=== PATIENT | female | born 1980 | race Caucasian/White ===

== ENCOUNTER 2019-05-17 10:45 | Outpatient (CLI) | payer OTHER ==
[2019-05-17] MEDS ORDERED: IOVERSOL 320 50 ML VIAL ONE (10:53)
[2019-05-17] MEDS ORDERED: IOVERSOL 320 100 ML VIAL IVP ONE (10:53)
[2019-05-17] MEDS: IOVERSOL 320 50 ML VIAL PO ONE (15:52)
[2019-05-17] MEDS: IOVERSOL 320 100 ML VIAL IVP ONE (15:52)
--- NOTE | 2019-05-18 16:56 | CT Report ---
Reason: LLQ PAIN Procedure Date: 05/17/2019 Accession Number: [id number] / [id number] Procedure: CT - Abdomen/Pelvis W CPT Code: Final Report FULL RESULT: EXAM: CT ABDOMEN AND PELVIS EXAM DATE: 05/17/2019 12:31 PM. CLINICAL HISTORY: LLQ PAIN. COMPARISONS: None. TECHNIQUE: Routine helical CT imaging was performed through the abdomen and pelvis. IV contrast: OPTI 320 100ML. Enteric contrast: No. Reconstructions: Coronal and sagittal. In accordance with CT protocol optimization, one or more of the following dose reduction techniques were utilized for this exam: automated exposure control, adjustment of mA and/or KV based on patient size, or use of iterative reconstructive technique. FINDINGS: Lung Bases: Unremarkable. Liver: Normal. No masses. Gallbladder/Bile Ducts: Unremarkable. Spleen: Normal. Pancreas: Normal. Adrenal Glands: Normal. Kidneys: Normal. No masses or hydronephrosis. Peritoneal Cavity/Bowel: Normal. No free fluid, free air or adenopathy. No masses or acute inflammatory process. The appendix is well visualized and normal. Pelvic Organs: A well-defined hypodense fluid containing lesion is seen in right adnexa measuring 4.6 x 3.2 cm. Findings most consistent with a physiological cyst of right ovary. Vasculature: No aneurysms or other significant abnormality. Bones: No significant abnormality. Other: None. IMPRESSION: No acute abdominal pathology. A 4.6 x 3.2 cm fluid containing hypodense lesion in right adnexa is consistent with physiological ovarian cyst in this age group. RADIA
== END 2019-05-17 10:46 | disposition home or self-care (01) ==
LOC: DI 10:45
PROVIDERS: ATTEND Nurse Practitioner Family
DX: N94.9 Unspecified condition associated with female genital organs and menstrual cycle (principal); R10.32 Left lower quadrant pain
CPT/HCPCS: 74177; Q9967

== ENCOUNTER 2019-08-26 09:04 | Outpatient (CLI) | payer OTHER ==
--- NOTE | 2019-08-26 11:08 | Ultrasound Report ---
Reason: HISTORY OF OVARIAN CYST Procedure Date: 08/26/2019 Accession Number: [id number] / [id number] Procedure: US - Pelvic w/Transvaginal CPT Code: Final Report FULL RESULT: EXAM: PELVIC ULTRASOUND EXAM DATE: 08/26/2019 09:40 AM. CLINICAL HISTORY: History of ovarian cyst. Remote hysterectomy for endometriosis 2011. COMPARISON: CT abdomen and pelvis 05/17/2019. TECHNIQUE: Realtime transabdominal pelvic scan for global evaluation, followed by transvaginal scan for further detail, with image documentation. FINDINGS: Uterus: Surgically absent. Right Ovary: 3.8 x 1.7 x 3.8 cm, volume 12.8 cc. Unremarkable. Previous cyst has resolved. Left Ovary: 3.2 x 1.9 x 3.1 cm, volume 9.9 cc. Unremarkable. No cyst by size criteria. Free Fluid: None. Other: No adnexal mass evident. IMPRESSION: 1. Resolution of right ovarian cyst. Bilateral ovaries appear unremarkable. 2. Hysterectomy. 3. No free fluid or adnexal lesion. RADIA
== END 2019-08-26 09:05 | disposition home or self-care (01) ==
LOC: DI 09:04
PROVIDERS: ATTEND Obstetrics & Gynecology
DX: Z87.42 Personal history of other diseases of the female genital tract (principal); Z90.710 Acquired absence of both cervix and uterus
CPT/HCPCS: 76830; 76856

== ENCOUNTER 2021-07-01 08:00 | Outpatient (CLI) | payer MEDICAID, OTHER ==
[2021-07-01 15:34] LABS: BASOPHILS # (AUTO) 0.1 10^3/uL (0.0-0.1); BASOPHILS % (AUTO) 1.1 %; EOSINOPHILS # (AUTO) 0.5 10^3/uL (0.0-0.7); EOSINOPHILS % (AUTO) 3.9 %; HCT - HEMATOCRIT 45.1 % (37.0-47.0); HGB - HEMOGLOBIN 15.9 g/dL (12.0-16.0); LYMPHOCYTES # (AUTO) 2.9 10^3/uL (1.5-3.5); LYMPHOCYTES % (AUTO) 23.7 %; MEAN CORPUSCULAR HEMOGLOBIN 32.4 pg (27.0-31.0); MEAN CORPUSCULAR HGB CONC 35.3 g/dL (32.0-36.0); MEAN CORPUSCULAR VOLUME 91.9 fL (81.0-99.0); MEAN PLATELET VOLUME 10.6 fL (7.9-10.8); MONOCYTES # (AUTO) 0.5 10^3/uL (0.0-1.0); MONOCYTES % (AUTO) 4.3 %; NEUTROPHILS # (AUTO) 8.1 10^3/uL (1.5-6.6); NEUTROPHILS % (AUTO) 66.4 %; PLT - PLATELET COUNT 324 10^3/uL (130-450); RED BLOOD COUNT 4.91 10^6/uL (4.20-5.40); RED CELL DISTRIBUTION WIDTH 12.1 % (12.0-15.0); WHITE BLOOD COUNT 12.2 x10^3/uL (4.8-10.8)
[2021-07-01 16:18] LABS: ALBUMIN 4.6 g/dL (3.2-5.5); ALBUMIN/GLOBULIN RATIO 1.4 (1.0-2.2); ALKALINE PHOSPHATASE 48 IU/L (42-121); ALT ALANINE AMINOTRANSFERASE 40 IU/L (10-60); AST ASPARTATE AMINOTRANSFERASE 39 IU/L (10-42); BILIRUBIN,TOTAL 0.6 mg/dL (0.2-1.0); BUN - BLOOD UREA NITROGEN 11 mg/dL (6-20); CALCIUM 9.7 mg/dL (8.5-10.3); CARBON DIOXIDE - CO2 26 mmol/L (21-32); CHLORIDE 97 mmol/L (101-111); CHOL/HDL RATIO 4.5 (<4.4); CHOLESTEROL 257 mg/dL; CREATININE 0.6 mg/dL (0.4-1.0); GFR - MDRD 111 (>89); GLUCOSE 129 mg/dL (70-100); HDL CHOLESTEROL 57 mg/dL; LDL CHOLESTEROL,CALCULATED 167 mg/dL; LDL/HDL RATIO 2.9 (<4.4); POTASSIUM 3.9 mmol/L (3.5-5.0); SODIUM 136 mmol/L (135-145); TRIGLYCERIDES 167 mg/dL; VLDL CHOLESTEROL 33 mg/dL
[2021-07-01 16:23] LABS: THYROID STIMULATING HORMONE 4.13 uIU/mL (0.34-5.60)
[2021-07-01 16:46] LABS: CREATININE,URINE 320.9 mg/dL; MICROALBUM/CREATININE RATIO,UR 16.5 ug/mg (<30.0); MICROALBUMIN,URINE 5.3 mg/dL (0-300.0)
[2021-07-01 19:57] LABS: ESTIMATED AVERAGE GLUCOSE 123 mg/dL (70-100); HEMOGLOBIN A1c% 5.9 % (4.27-6.07)
== END 2021-07-01 23:59 | disposition home or self-care (01) ==
LOC: LAB.S 08:00
PROVIDERS: ATTEND Registered Nurse
DX: F41.9 Anxiety disorder, unspecified (principal); I10 Essential (primary) hypertension; R73.01 Impaired fasting glucose; F32.A Depression, unspecified
CPT/HCPCS: 36415; 80053; 80061; 82043; 82306; 82570; 83036; 83721; 84443; 85025

== ENCOUNTER 2021-07-27 09:54 | Emergency (ER) | payer MEDICAID ==
[2021-07-27 10:22] LABS: BASOPHILS # (AUTO) 0.1 10^3/uL (0.0-0.1); BASOPHILS % (AUTO) 0.8 %; EOSINOPHILS # (AUTO) 0.1 10^3/uL (0.0-0.7); EOSINOPHILS % (AUTO) 1.1 %; HCT - HEMATOCRIT 42.9 % (37.0-47.0); HGB - HEMOGLOBIN 14.8 g/dL (12.0-16.0); LYMPHOCYTES # (AUTO) 2.5 10^3/uL (1.5-3.5); LYMPHOCYTES % (AUTO) 22.2 %; MEAN CORPUSCULAR HEMOGLOBIN 31.9 pg (27.0-31.0); MEAN CORPUSCULAR HGB CONC 34.5 g/dL (32.0-36.0); MEAN CORPUSCULAR VOLUME 92.5 fL (81.0-99.0); MEAN PLATELET VOLUME 9.7 fL (7.9-10.8); MONOCYTES # (AUTO) 0.6 10^3/uL (0.0-1.0); MONOCYTES % (AUTO) 5.3 %; NEUTROPHILS # (AUTO) 7.8 10^3/uL (1.5-6.6); NEUTROPHILS % (AUTO) 70.2 %; PLT - PLATELET COUNT 248 10^3/uL (130-450); RED BLOOD COUNT 4.64 10^6/uL (4.20-5.40); RED CELL DISTRIBUTION WIDTH 12.2 % (12.0-15.0); WHITE BLOOD COUNT 11.1 x10^3/uL (4.8-10.8)
[2021-07-27 10:36] LABS: ALBUMIN 4.7 g/dL (3.2-5.5); ALBUMIN/GLOBULIN RATIO 1.4 (1.0-2.2); BILIRUBIN,TOTAL 0.8 mg/dL (0.2-1.0); CALCIUM 9.2 mg/dL (8.5-10.3); CREATININE 0.5 mg/dL (0.4-1.0)
--- NOTE | 2021-07-27 10:59 | ED Physician Documentation ---
PD HPI ABD PAIN - Stated complaint Stated Complaint: ABD PX - Chief complaint Chief Complaint: Abd Pain - History obtained from History obtained from: Patient - History of Present Illness Timing - onset: Yesterday Timing - duration: Days (06/06) Timing - details: Abrupt onset, Waxing and waning Quality: Sharp, Pain Location: RLQ, Suprapubic Radiation: Lower back. No: Right flank Improved by: Laying still. No: Eating Worsened by: Moving. No: Eating, Breathing, Palpation Associated symptoms: Nausea. No: Fever, Vomiting, Diarrhea, Constipation, Dysuria, Vaginal bleeding Similar symptoms before: Has not had sx before Recently seen: Not recently seen Review of Systems Constitutional: denies: Fever, Chills Nose: denies: Rhinorrhea / runny nose, Congestion Throat: denies: Sore throat Respiratory: denies: Cough GI: reports: Abdominal Pain, Nausea. 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) : None - Past Surgical History /FOOD AND BEVERAGE SERVER: Hysterectomy - Present Medications Home Medications: Ambulatory Orders Medication Instructions Recorded Confirmed Docusate Sodium 100Mg Capsule 100 mg PO DAILY #15 cap 07/27/21 [Colace 100Mg Capsule] HYDROcod/ACETAM 5/325 [Iselin 5/325] 1 ea PO Q6H PRN #12 tablet 07/27/21 Naproxen 250 mg PO TID 7 Days #20 tablet 07/27/21 - Allergies Allergies/Adverse Reactions: Allergies Allergy/AdvReac Type Severity Reaction Status Date / Time No Known Drug Allergies Allergy Verified 07/27/21 10:08 PD ED PE NORMAL - Vitals Vital signs reviewed: Yes - General General: Alert and oriented X 3, No acute distress (seems in pain and also anxious), Well developed/nourished - Neck Neck: Supple, no meningeal sign, No adenopathy - Cardiac Cardiac: RRR, No murmur - Respiratory Respiratory: Clear bilaterally - Abdomen Abdomen: Normal bowel sounds, Soft, Non distended, No organomegaly, Other (tender RLQ and suprpubic area on right with some local guarding. NO percussion tenderness. ) - Female Female : Deferred - Rectal Rectal: Deferred - Back Back: No CVA TTP - Derm Derm: Normal color, Warm and dry, No rash - Neuro Neuro: Alert and oriented X 3, No motor deficit, Normal speech Results - Vitals Vitals: Vital Signs - 24 hr 07/27/21 07/27/21 14:08 15:42 Temperature 36.7 C 36.6 C Heart Rate 85 86 Respiratory 18 16 Rate Blood Pressure 170/102 H 158/98 H O2 Saturation 98 97 Oxygen O2 Source Room air - Labs Labs: Laboratory Tests 07/27/21 07/27/21 07/27/21 10:19 10:19 10:53 WBC 11.1 H RBC 4.64 Hgb 14.8 Hct 42.9 MCV 92.5 MCH 31.9 H MCHC 34.5 RDW 12.2 Plt Count 248 MPV 9.7 Neut # (Auto) 7.8 H Lymph # (Auto) 2.5 [place] # (Auto) 0.6 Eos # (Auto) 0.1 Baso # (Auto) 0.1 Absolute Nucleated RBC 0.00 Nucleated RBC % 0.0 Sodium 131 L Potassium 4.0 Chloride 95 L Carbon Dioxide 24 Anion Gap 12.0 BUN 12 Creatinine 0.5 Estimated GFR (MDRD) 137 Glucose 123 H Calcium 9.2 Total Bilirubin 0.8 AST 48 H ALT 48 Alkaline Phosphatase 45 Total Protein 8.0 Albumin 4.7 Globulin 3.3 Albumin/Globulin Ratio 1.4 Lipase 34 Urine Color YELLOW Urine Clarity CLEAR Urine pH 7.0 Ur Specific Rankin 1.025 Urine Protein NEGATIVE Urine Glucose (UA) NEGATIVE Urine Ketones 15 H Urine Occult Blood NEGATIVE Urine Nitrite NEGATIVE Urine Bilirubin NEGATIVE Urine Urobilinogen 0.2 (NORMAL) Ur Leukocyte Esterase NEGATIVE Ur Microscopic Review NOT INDICATED Urine Culture Comments NOT INDICATED Urine HCG, Qual NEGATIVE - Rads (name of study) pelvic U/S Radiology: Prelim report reviewed (ovaries normal bilaterally. No pelvic free fluid. ), See rad report abd U/S Radiology: Prelim report reviewed (gallbladder normal), See rad report abd/pelvic CT Radiology: Prelim report reviewed (no acute process to explain pain. ), See rad report PD MEDICAL DECISION MAKING - ED course Complexity details: reviewed results, considered differential (pain sounding pelvic area so started with U/S, which showed normal ovaries. SO consider stone, appy, etc and got CT, which is also negative. UNclear cause of pain, but not significant cause at this time. Can treat and watch progression. ), d/w patient Departure - Departure Disposition: 01 Home, Self Care Clinical Impression: Right lower quadrant abdominal pain Condition: Stable Record reviewed to determine appropriate education?: Yes Instructions: ED Abdominal Pain Female Non-Specific Abdominal Pain Follow-Up: Alisa Gutierres ARNP [Primary Care Provider] - Prescriptions: Docusate Sodium 100Mg Capsule [Colace 100Mg Capsule] 100 mg PO DAILY #15 cap Naproxen 250 mg PO TID 7 Days #20 tablet HYDROcod/ACETAM 5/325 [Iselin 5/325] 1 ea PO Q6H PRN #12 tablet PRN Reason: Pain Comments: Your urine test, blood test, pelvic ultrasound and CT of the abdomen pelvis are normal without any acute findings to account for your pain. Considerations therefore would be things that would not show on these tests such as some stretching or tearing of adhesions (scar tissue), muscular type pains, ureteral colic or spasm such as small gravel or a tiny stone that passed and so therefore was not still present on scan, etc. There are common enough times of the presence of belly pain with normal testing. Typically in those cases cause of the pain is transient and gets better over a few days. I would suggest using anti-inflammatory such as naproxen 3 times daily with food for the next several days to week. Add Tylenol every 4-6 hours if needed for pain or hydrocodone if needed for worse pain. These would be intended short-term. Recheck if persistent symptoms beyond several days to week or if any new associated symptoms such as bloody stool, fevers, vomiting, skin rash, other concerns. I transmitted prescriptions to [email or web address] in [place]. I am prescribing a short course of narcotic pain medication for you. These are potentially dangerous and addictive medications that should be used carefully. These medications may constipate you. Take an hyuz-wpu-[id number] stool softener such as docusate twice daily with plenty of water while taking these medications. If you go 24 hours without a bowel movement, take wrpb-vdr-[id number] MiraLAX, per package instructions. Do not drink or drive while taking these medications. If you received narcotic or sedating medications while in the emergency department do not drive for 24 hours. Store this medication in a safe, secure place and out of reach of children. It is a violation of federal law to give or sell this medication to another person or to use in a manner other than prescribed. The ED will not refill narcotic prescriptions, including prescriptions lost or stolen. You can dispose of unwanted medications at the [facility]'s office or at several pharmacies such as [facility]. Discharge Date/Time: 07/27/21 15:44
[2021-07-27 11:04] LABS: BILIRUBIN,URINE NEGATIVE (NEGATIVE); CLARITY,URINE CLEAR (CLEAR); GLUCOSE, URINE (UA) NEGATIVE (NEGATIVE); KETONES,URINE (UA) 15 mg/dL (NEGATIVE); LEUKOCYTE ESTERASE, URINE NEGATIVE (NEGATIVE); NITRITE,URINE NEGATIVE (NEGATIVE); OCCULT BLOOD,URINE NEGATIVE (NEGATIVE); PROTEIN,URINE NEGATIVE (NEGATIVE); UROBILINOGEN,URINE 0.2 (NORMAL) E.U./dL (NORMAL)
[2021-07-27 11:06] LABS: HCG UR QUAL NEGATIVE
[2021-07-27] MEDS ORDERED: KETOROLAC 30 MG/ML VIAL IVP STA (11:28)
[2021-07-27] MEDS ORDERED: ONDANSETRON 4 MG/2 ML VIAL IVP STA (11:28)
[2021-07-27] MEDS ORDERED: HYDROmorphone 1 MG/ML CARPUJECT IVP STA (11:28)
[2021-07-27] MEDS ORDERED: SODIUM CHLORIDE 0.9% 1,000 ML IV STA (11:32)
--- NOTE | 2021-07-27 12:53 | Ultrasound Report ---
PROCEDURE: Abdomen Limited INDICATIONS: RLQ pain/tender TECHNIQUE: Real-time focused scanning was performed of the abdomen, with image documentation. COMPARISON: Reference is made to the CT abdomen dated May 17, 2019. FINDINGS: AORTA: The visualized abdominal aorta is normal. IVC: The visualized IVC is normal. LIVER: Normal contour. Increased echogenicity, compatible hepatic steatosis. The portal vein is pat ent. Measures 17.4 cm in length. PANCREAS: The visualized portions of the pancreas are normal. Gallbladder and biliary tree: No gallbladder wall thickening, pericholecystic fluid, or shadowing g allstones. The common bile duct measures 4.4 mm. RIGHT KIDNEY: Normal in appearance with no hydronephrosis. Measuring 11 point cm in length. The pat al cortex thickness measures 1.45 cm. No ascites. IMPRESSION: 1.No acute right upper quadrant sonographic abnormality. Reviewed by: Saad Barbour MD on 07/27/2021 12:51 PM PST Approved by: Saad Barbour MD on 07/27/2021 12:51 PM PST Station ID: [id number]
--- NOTE | 2021-07-27 12:57 | Ultrasound Report ---
PROCEDURE: Pelvic w/Transvag+Doppler Comp INDICATIONS: pelvic pain, R TECHNIQUE: Real-time scanning was performed of the pelvic organs, with image documentation. Additional endovagi nal scanning was necessary due to incomplete visualization of the adnexal and endometrial structures by transabdominal scanning. COMPARISON: August 26, 2019. FINDINGS: UTERUS: Hysterectomy. RIGHT OVARY: 4.3 x 1.8 x 3.6 cm. Color-flow projects over the ovarian tissue. LEFT OVARY: 2.8 x 2.2 x 3.7 cm. Color-flow projects over the ovarian tissue. OTHER: None. IMPRESSION: 1.No significant abnormality. Reviewed by: Saad Barbour MD on 07/27/2021 12:55 PM PST Approved by: Saad Barbour MD on 07/27/2021 12:55 PM PST Station ID: [id number]
[2021-07-27] MEDS ORDERED: IOVERSOL 320 100 ML VIAL IVP ONE ×2 (13:41→16:18)
--- NOTE | 2021-07-27 14:25 | CT Report ---
PROCEDURE: Abdomen/Pelvis W INDICATIONS: right lower abd pain CONTRAST: 100 mL Optiray 320 TECHNIQUE: After the administration of intravenous contrast, 5 mm thick sections acquired from the diaphragms to the symphysis. 5 mm thick coronal and sagittal reformats were acquired. For radiation dose reducti on, the following was used: automated exposure control, adjustment of mA and/or kV according to angela ent size. COMPARISON: None. FINDINGS: Image quality: Excellent. ABDOMEN: Lung bases: Lung bases are clear. Heart size is normal. Solid organs: Hepatic hypoattenuation indicative of diffuse steatosis. No focal hepatic mass. Spleen is normal in size and appearance. Gallbladder normal. Biliary system is non dilated. Pancreas enhan michael normally. No adrenal nodules. Kidneys demonstrate normal size and enhancement, without hydronep hrosis. Peritoneum and bowel: Appendix is normal. Bowel loops demonstrate normal wall thickness and caliber. No free fluid or air. Nodes and vessels: No retroperitoneal or mesenteric adenopathy by size criteria. Aorta and inferior vena cava are normal in size. Miscellaneous: No ventral hernias. PELVIS: Genitourinary: Bladder wall thickness is normal. Miscellaneous: No inguinal hernias or adenopathy. Bones: No suspicious bony lesions. Bilateral L5 pars defects with grade 1 spondylolisthesis of L5 on S1 measuring 7 mm. IMPRESSION: No appendicitis or other acute finding. Reviewed by: Trell Crespo MD on 07/27/2021 2:24 PM PST Approved by: Trell Crespo MD on 07/27/2021 2:24 PM PST Station ID: [id number]
[2021-07-27 15:44] VITALS: BP 158/98
== END 2021-07-27 15:44 | disposition home or self-care (01) ==
LOC: ED 09:54
DX: R10.31 Right lower quadrant pain (principal)
CPT/HCPCS: 36415; 74177; 76705; 76830; 76856; 80053; 81003; 81025; 83690; 85025; 93975; 96374; 96375; 99282; 99284; Q9967; 81001; 87086

== ENCOUNTER 2022-04-21 08:30 | Outpatient (CLI) | payer OTHER ==
--- NOTE | 2022-04-21 10:58 | MRI Report ---
PROCEDURE: BRAIN WO INDICATIONS: Cluster headache TECHNIQUE: Noncontrast axial T1 spin echo, axial T2 fast spin echo, sagittal and axial FLAIR, coronal T2 fast sp in echo, axial gradient echo, axial diffusion and ADC through the brain. COMPARISON: None. FINDINGS: Image quality: Excellent. CSF Spaces: Basal cisterns are patent. No extra-axial fluid collections. Ventricles are normal in size and shape. Brain: No intracranial masses or hemorrhage. Rabago/white matter interface is normal. Brainstem appe ars normal. Diffusion-weighted images demonstrate no acute ischemic insult. No chronic ischemic ins ults. Normal intravascular flow voids are present. Skull and face: Calvarium has normal marrow signal. Orbits appear normal. Sinuses: Sinuses and mastoids are clear. IMPRESSION: Normal MRI of the brain. Reviewed by: Trell Crespo MD on 04/21/2022 10:56 AM [facility] Approved by: Trell Crespo MD on 04/21/2022 10:56 AM [facility] Station ID: [id number]
== END 2022-04-21 08:31 | disposition home or self-care (01) ==
LOC: DI 08:30
PROVIDERS: ATTEND Registered Nurse
DX: G44.009 Cluster headache syndrome, unspecified, not intractable (principal)

== ENCOUNTER 2022-05-28 09:55 | Emergency (ER) | payer OTHER ==
[2022-05-28 10:16] VITALS: BP 160/101
[2022-05-28 10:39] LABS: BASOPHILS # (AUTO) 0.1 10^3/uL (0.0-0.1); BASOPHILS % (AUTO) 0.6 %; EOSINOPHILS # (AUTO) 0.1 10^3/uL (0.0-0.7); EOSINOPHILS % (AUTO) 0.7 %; HGB - HEMOGLOBIN 15.6 g/dL (12.0-16.0); LYMPHOCYTES # (AUTO) 1.2 10^3/uL (1.5-3.5); LYMPHOCYTES % (AUTO) 12.9 %; MEAN CORPUSCULAR HEMOGLOBIN 32.4 pg (27.0-31.0); MEAN CORPUSCULAR HGB CONC 34.7 g/dL (32.0-36.0); MEAN CORPUSCULAR VOLUME 93.4 fL (81.0-99.0); MEAN PLATELET VOLUME 9.5 fL (7.9-10.8); MONOCYTES # (AUTO) 0.5 10^3/uL (0.0-1.0); MONOCYTES % (AUTO) 5.1 %; NEUTROPHILS # (AUTO) 7.3 10^3/uL (1.5-6.6); NEUTROPHILS % (AUTO) 80.4 %; PLT - PLATELET COUNT 183 10^3/uL (130-450); RED BLOOD COUNT 4.82 10^6/uL (4.20-5.40); RED CELL DISTRIBUTION WIDTH 12.6 % (12.0-15.0); WHITE BLOOD COUNT 9.1 x10^3/uL (4.8-10.8)
[2022-05-28 11:00] LABS: ALBUMIN 4.7 g/dL (3.2-5.5); ALBUMIN/GLOBULIN RATIO 1.4 (1.0-2.2); BILIRUBIN,TOTAL 1.9 mg/dL (0.2-1.0); CALCIUM 9.8 mg/dL (8.5-10.3); CREATININE 0.6 mg/dL (0.4-1.0); POTASSIUM 3.6 mmol/L (3.5-5.0)
--- OUTSIDE RECORDS SUMMARY | 2022-05-28 11:06 | EXTERNAL MEDICAL SUMMARY RPT | Continuity of Care Document ---
:1980 Author Organization [facility] Address [address] [place] [address] Phone Care Team Providers Name Role Phone Unavailable Unavailable Unavailable Alisa Davila Unavailable Unavailable Allergies No information. Encounters No information. Functional Status No information. Immunizations No information. Medications date description facility 2022-03-18 00:00 clonidine hcl All 2022-03-18 00:00 hydrochlorothiazide All 2022-03-18 00:00 buspirone All 2022-03-22 00:00 buspirone All 2022-04-06 00:00 buspirone All 2022-04-07 00:00 buspirone All 2022-04-06 00:00 sumatriptan All 2022-03-18 00:00 lisinopril All 2022-03-22 00:00 lisinopril All 2022-04-06 00:00 lisinopril All 2022-04-07 00:00 lisinopril All 2022-03-18 00:00 hydroxyzine hcl All 2022-03-22 00:00 hydroxyzine hcl All 2022-04-06 00:00 hydroxyzine hcl All 2022-04-07 00:00 hydroxyzine hcl All 2022-03-18 00:00 hydroxyzine hcl All 2022-03-22 00:00 hydroxyzine hcl All 2022-04-06 00:00 hydroxyzine hcl All 2022-04-07 00:00 hydroxyzine hcl All 2022-03-18 00:00 lisinopril All 2022-03-22 00:00 lisinopril All 2022-04-06 00:00 lisinopril All 2022-04-07 00:00 lisinopril All 2022-03-18 00:00 acyclovir All 2022-03-22 00:00 acyclovir All 2022-04-06 00:00 acyclovir All 2022-04-07 00:00 acyclovir All 2022-03-18 00:00 acyclovir All 2022-03-22 00:00 acyclovir All 2022-04-06 00:00 acyclovir All 2022-04-07 00:00 acyclovir All 2022-03-18 00:00 acyclovir All 2022-03-22 00:00 acyclovir All 2022-04-06 00:00 acyclovir All 2022-04-07 00:00 acyclovir All 2022-03-18 00:00 lisinopril All 2022-03-22 00:00 lisinopril All 2022-04-06 00:00 lisinopril All 2022-04-07 00:00 lisinopril All 2022-04-06 00:00 sumatriptan All 2022-03-18 00:00 lisinopril All 2022-03-22 00:00 lisinopril All 2022-04-06 00:00 lisinopril All 2022-04-07 00:00 lisinopril All 2022-03-18 00:00 clonidine hcl All 2022-03-18 00:00 hydrochlorothiazide All 2022-03-18 00:00 hydrochlorothiazide All 2022-03-18 00:00 clonidine hcl All 2022-04-06 00:00 sumatriptan All 2022-03-18 00:00 buspirone All 2022-03-22 00:00 buspirone All 2022-04-06 00:00 buspirone All 2022-04-07 00:00 buspirone All 2022-03-18 00:00 hydroxyzine hcl All 2022-03-22 00:00 hydroxyzine hcl All 2022-04-06 00:00 hydroxyzine hcl All 2022-04-07 00:00 hydroxyzine hcl All 2022-03-22 00:00 duloxetine All 2022-04-06 00:00 duloxetine All 2022-04-07 00:00 duloxetine All 2022-03-22 00:00 duloxetine All 2022-04-06 00:00 duloxetine All 2022-04-07 00:00 duloxetine All 2022-03-18 00:00 duloxetine All 2022-03-22 00:00 duloxetine All 2022-04-06 00:00 duloxetine All 2022-04-07 00:00 duloxetine All 2022-03-18 00:00 duloxetine All 2022-03-18 00:00 acyclovir All 2022-03-22 00:00 acyclovir All 2022-04-06 00:00 acyclovir All 2022-04-07 00:00 acyclovir All 2022-04-06 00:00 sumatriptan All 2022-03-18 00:00 duloxetine All 2022-03-18 00:00 buspirone All 2022-03-22 00:00 buspirone All 2022-04-06 00:00 buspirone All 2022-04-07 00:00 buspirone All 2022-03-18 00:00 buspirone All 2022-03-22 00:00 buspirone All 2022-04-06 00:00 buspirone All 2022-04-07 00:00 buspirone All 2022-03-18 00:00 clonidine hcl All 2022-03-22 00:00 duloxetine All 2022-04-06 00:00 duloxetine All 2022-04-07 00:00 duloxetine All 2022-03-18 00:00 duloxetine All 2022-03-18 00:00 hydroxyzine hcl All 2022-03-22 00:00 hydroxyzine hcl All 2022-04-06 00:00 hydroxyzine hcl All 2022-04-07 00:00 hydroxyzine hcl All 2022-03-18 00:00 hydrochlorothiazide All Problems date description facility 2022-04-05 00:00 Cluster headache All 2022-04-05 00:00 Cluster headache syndrome, unspecified All 2022-04-05 00:00 Cluster headache syndrome, unspecified, not All intractable Procedures date description facility 2022-04-05 00:00 Visit Code Hold All Results/Labs No information. Social History date description facility 2022-04-05 00:00 Never smoker All Vital Signs date measurement value units 2022-04-05 00:00 BMI 30.73 kg/m2 2022-04-05 00:00 BP_diastolic 90 mmHg 2022-04-05 00:00 BP_systolic 141 mmHg 2022-04-05 00:00 heart_rate 111 /min 2022-04-05 00:00 height_metric 157.48 cm 2022-04-05 00:00 height_standard 62 in 2022-04-05 00:00 respiration_rate 17 /min 2022-04-05 00:00 temperature_metric 35.72 C 2022-04-05 00:00 temperature_standard 96.3 F 2022-04-05 00:00 weight_metric 75.93 kg 2022-04-05 00:00 weight_standard 167.4 lb
== END 2022-05-28 11:55 | disposition left against medical advice (07) ==
LOC: ED 09:55
DX: R03.0 Elevated blood-pressure reading, without diagnosis of hypertension (principal); R21 Rash and other nonspecific skin eruption; Z53.21 Procedure and treatment not carried out due to patient leaving prior to being seen by health care provider
CPT/HCPCS: 36415; 80053; 83690; 84484; 85025; 93005

== ENCOUNTER 2022-07-22 09:52 | Outpatient (CLI) | payer OTHER ==
--- NOTE | 2022-07-22 12:16 | Mammography Report ---
BILATERAL DIGITAL SCREENING MAMMOGRAM 3D/2D: 07/22/2022 CLINICAL: Routine screening. Baseline exam. No prior exams were available for comparison. There are scattered areas of fibroglandular density in both breasts (category b / 25%-50% glandular t issue). No significant masses, calcifications, or other findings are seen in either breast. IMPRESSION: NEGATIVE There is no mammographic evidence of malignancy. A 1 year screening mammogram is recommended. Based on the Tyrer Cuzick model (a risk assessment model) the patients lifetime risk is 7.4% and her 10 year risk is 1.0%. According to the ACR, ACS, and NCCN guidelines, an annual breast MRI exam brian g with mammogram is recommended if the patients lifetime risk is 20% or greater. This exam was interpreted at Station ID: [id number]. NOTE: For mammograms, a report in lay terms will be sent to the patient. Approximately 15% of breast malignancies will not be visualized mammographically. In the management of a palpable breast mass, a negative mammogram must not discourage biopsy of a clinically suspicious lesion. Electronically Signed By: Arden rice/elliot:07/22/2022 10:56:23 ACR BI-RADS Category 1: Negative 3341F PARENCHYMAL PATTERN: (A) - The breast(s) demonstrate(s) scattered fibroglandular densities. BI-RADS CATEGORY: (1) - 1 RECOMMENDATION: (ANNUAL) - Recommend routine annual screening mammography. [id number] 1 year screening LATERALITY: (B)
== END 2022-07-22 09:53 | disposition home or self-care (01) ==
LOC: DI 09:52
DX: Z12.31 Encounter for screening mammogram for malignant neoplasm of breast (principal)

== ENCOUNTER 2022-09-19 13:44 | Outpatient (CLI) | payer MEDICAID ==
[2022-09-19 14:00] LABS: BASOPHILS # (AUTO) 0.1 10^3/uL (0.0-0.1); BASOPHILS % (AUTO) 0.6 %; EOSINOPHILS # (AUTO) 0.1 10^3/uL (0.0-0.7); EOSINOPHILS % (AUTO) 0.8 %; HGB - HEMOGLOBIN 15.4 g/dL (12.0-16.0); LYMPHOCYTES # (AUTO) 2.3 10^3/uL (1.5-3.5); LYMPHOCYTES % (AUTO) 20.2 %; MEAN CORPUSCULAR HEMOGLOBIN 31.5 pg (27.0-31.0); MEAN CORPUSCULAR HGB CONC 34.2 g/dL (32.0-36.0); MONOCYTES # (AUTO) 0.7 10^3/uL (0.0-1.0); MONOCYTES % (AUTO) 5.8 %; NEUTROPHILS # (AUTO) 8.4 10^3/uL (1.5-6.6); NEUTROPHILS % (AUTO) 72.2 %; PLT - PLATELET COUNT 228 10^3/uL (130-450); RED BLOOD COUNT 4.89 10^6/uL (4.20-5.40); RED CELL DISTRIBUTION WIDTH 12.8 % (12.0-15.0); WHITE BLOOD COUNT 11.6 x10^3/uL (4.8-10.8)
[2022-09-19 14:27] LABS: CHOL/HDL RATIO 4.5 (<4.4); CHOLESTEROL 330 mg/dL; HDL CHOLESTEROL 74 mg/dL; LDL CHOLESTEROL,CALCULATED 220 mg/dL; TRIGLYCERIDES 182 mg/dL; VLDL CHOLESTEROL 36 mg/dL
[2022-09-20 16:08] LABS: HIV SCREEN 4TH GENERATION Non Reactive (Non Reactive)
== END 2022-09-19 13:45 | disposition home or self-care (01) ==
LOC: LAB 13:44
PROVIDERS: ATTEND Registered Nurse
DX: L30.9 Dermatitis, unspecified (principal); R21 Rash and other nonspecific skin eruption; Z13.9 Encounter for screening, unspecified
CPT/HCPCS: 36415; 80061; 83721; 85025; 87389

== ENCOUNTER 2022-10-13 12:07 | Outpatient (CLI) | payer MEDICAID ==
[2022-10-13 13:20] LABS: ALBUMIN 4.3 g/dL (3.2-5.5); ALBUMIN/GLOBULIN RATIO 1.3 (1.0-2.2); BILIRUBIN,TOTAL 0.9 mg/dL (0.2-1.0); CALCIUM 9.7 mg/dL (8.5-10.3); CREATININE 0.5 mg/dL (0.4-1.0); CRP - C-REACTIVE PROTEIN 1.3 mg/dL (0-1.0); TOTAL PROTEIN 7.7 g/dL (6.7-8.2)
[2022-10-13 17:32] LABS: FERRITIN 271.4 ng/mL (11.0-306.8)
[2022-10-14 16:08] LABS: ANTI-DNA (DS) AB QN <1 IU/mL (0-9); CENTROMERE B ANTIBODIES <0.2 AI (0.0-0.9); CHROMATIN ANTIBODIES <0.2 AI (0.0-0.9); JO-1 AB <0.2 AI (0.0-0.9); RIBOSOMAL P ANTIBODIES <0.2 AI (0.0-0.9); RNP ANTIBODIES <0.2 AI (0.0-0.9); SCLERODERMA-70 ANTIBODIES <0.2 AI (0.0-0.9); SJOGREN'S ANTI-SS-A <0.2 AI (0.0-0.9); SJOGREN'S ANTI-SS-B <0.2 AI (0.0-0.9); SMITH ANTIBODIES <0.2 AI (0.0-0.9); SMITH/RNP ANTIBODIES <0.2 AI (0.0-0.9)
[2022-10-14 17:08] LABS: ZINC PLASMA OR SERUM 70 ug/dL (44-115)
== END 2022-10-13 12:08 | disposition home or self-care (01) ==
LOC: LAB 12:07
PROVIDERS: ATTEND Nurse Practitioner
DX: L65.9 Nonscarring hair loss, unspecified (principal); L25.9 Unspecified contact dermatitis, unspecified cause
CPT/HCPCS: 36415; 80053; 81599; 82607; 82728; 83516; 83540; 84466; 84630; 85651; 86003; 86140; 86225; 86235; 86480

== ENCOUNTER 2022-10-27 08:00 | Outpatient (CLI) | payer MEDICAID ==
[2022-10-27 16:01] LABS: BILIRUBIN,URINE NEGATIVE (NEGATIVE); GLUCOSE, URINE (UA) NEGATIVE (NEGATIVE); KETONES,URINE (UA) NEGATIVE (NEGATIVE); LEUKOCYTE ESTERASE, URINE NEGATIVE (NEGATIVE); NITRITE,URINE NEGATIVE (NEGATIVE); OCCULT BLOOD,URINE NEGATIVE (NEGATIVE); PH,URINE 7.5 PH (5.0-7.5); PROTEIN,URINE NEGATIVE (NEGATIVE); UROBILINOGEN,URINE 0.2 (NORMAL) E.U./dL (NORMAL)
[2022-10-27 16:03] LABS: CLARITY,URINE CLEAR (CLEAR)
[2022-10-27 16:19] LABS: BACTERIA,URINE None Seen /HPF (None Seen); RBC,URINE None Seen /HPF (0-5); SQUAMOUS EPITHELIAL CELL,UR RARE Squamous (<= Few); WBC,URINE 0-3 /HPF (0-5)
== END 2022-10-27 23:59 | disposition home or self-care (01) ==
LOC: LAB.WC 08:00
PROVIDERS: ATTEND Obstetrics & Gynecology
DX: R10.2 Pelvic and perineal pain (principal)
CPT/HCPCS: 81001; 87086